=== PATIENT | female | born 2000 | race Caucasian/White ===

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

== ENCOUNTER 2020-05-18 00:06 | Outpatient (CLI) | payer MEDICAID ==
[~2020-05-18] VITALS: Ht 160 cm; Wt 68.2 kg
--- NOTE | 2020-05-18 00:05 | NUR ---
0005- PT PRESENTS TO LDR COMPLAINING OF ABDOMINAL PAIN AFTER FALLING ON HER BELLY IN THE SHOWER, TO LR3 PER WHEELCHAIR, CHANGED INTO GOWN. 0015- EFM X2 APPLIED. PT DENIES LEAKING FLUID OR VAGINAL BLEEDING. STATES SHE IS HAVING A SHARP PAIN IN HER LOWER BELLY THAT LASTS A FEW SECONDS AND COMES AND GOES. STATES SHE SLIPPED ON SOME CLOTHES WHILE GETTING OUT OF TUB AND FELL ON HER BELLY. DENIES GETTING LIGHT HEADED BEFORE OR AFTER FALL. STATES SHE HAS NOT FELT BABY MOVE SINCE THE FALL, BUT MOVEMENT HEARD ON MONITOR. PT IS RELIEVED WHEN HEART TONES FOUND EASILY. 0020- NURSING ADMISSION HISTORY AND ASSESSMENT COMPLETE. VSS. PLAN OF CARE DISCUSSED AND QUESTIONS ANSWERED. 0045- DR HECK CALLED AND UPDATED CHARTED. ORDERS FOR DISMISSAL WHEN PT IS MORE COMFORTABLE AND REASSURED. PLAN OF CARE DISCUSSED WITH PT. 0115- PT FEELS REASSURED THAT BABY IS DOING OK. STATE SHE IS FEELING MOVEMENT AND KNOWS SHE CAN RETURN TO LDR IF NEEDED. PT OFF MONITOR FOR DISMISSAL. 0130- DISMISSAL INSTRUCTIONS GIVEN AND PT VERBALIZES UNDERSTANDING OF WHEN TO FOLLOW UP AND WHEN TO RETURN TO LDR. PT DISMISSED TO HOME AMBULATORY.
[~2020-05-18 00:06] MED LIST: BACTRIM DS 8001 TAB PO; CEPHALEXIN500 M1 PO
[2020-05-18] MEDS ORDERED: PRENATAL VITAMI1 TA3 PO (00:33)
[2020-05-18 00:45] VITALS: BP 126/70; PULSE 79; TEMP 97.7
== END 2020-05-18 01:30 | disposition home or self-care (01) ==
LOC: LDRO 00:06 → LDR 00:24 → LDRO 01:30
DX: O26.893 Other specified pregnancy related conditions, third trimester (principal); R10.9 Unspecified abdominal pain; Z3A.30 30 weeks gestation of pregnancy
CPT/HCPCS: OP

== ENCOUNTER 2020-07-23 22:56 | Outpatient (CLI) | payer MEDICAID ==
[~2020-07-23] VITALS: Ht 162.6 cm; Wt 75.9 kg
[~2020-07-23 22:56] MED LIST changes: +PRENATAL VITAMI1 TA3 PO
--- NOTE | 2020-07-23 23:00 | NUR ---
PT ARRIVED TO THE UNIT VIA WHEELCHAIR WITH FOB WITH COMPLAINTS OF CONTRACTIONS THAT BEGAN APPROXIMATELY 30 MINUTES AGO. PT ORIENTED TO ROOM, CHANGED INTO GOWN, EFMX2 APPLIED, VS OBTAINED, SVE PERFORMED.
[2020-07-23 23:30] VITALS: BP 131/69; PULSE 78; TEMP 98.1
[2020-07-24] VITALS: BP 118/59; PULSE 62
[2020-07-24 00:32] VITALS: BP 118/67; PULSE 68
--- NOTE | 2020-07-24 00:32 | NUR ---
MONTIORING DC'D AT THIS TIME. PT MAY DC HOME PER DR. AVILEZ.
--- NOTE | 2020-07-24 00:50 | NUR ---
DISCHARGE INSTRUCTIONS REVIEWED WITH PT AND FOB, QUESTIONS ENCOURAGED AND ANSWERED. UNDERSTANDING VERBALIZED. PT OFF UNIT VIA WHEELCHAIR PER HER REQUEST WITH FOB FOR HOME.
[2020-07-25] MEDS ORDERED: IBU800 M1 PO (08:41)
[2020-07-25] MEDS ORDERED: PERCOCET 325 MG1 TA2 PO (08:42)
== END 2020-07-24 00:50 | disposition home or self-care (01) ==
LOC: LDRO 22:56
DX: O62.9 Abnormality of forces of labor, unspecified (principal); Z3A.39 39 weeks gestation of pregnancy

== ENCOUNTER 2020-07-24 02:58 | Inpatient (IN) | payer MEDICAID ==
[~2020-07-24] VITALS: Ht 162.6 cm; Wt 75.9 kg
[2020-07-24] VITALS (44 sets, daily range): BP systolic 106–138; BP diastolic 54–93; PULSE 56–111; TEMP 97.3–98.6
--- NOTE | 2020-07-24 03:00 | NUR ---
PT ARRIVED TO UNIT VIA WHEELCHAIR WITH FOB WITH COMPLAINTS OF MORE INTENSE CONTRACTIONS SINCE PREVIOUS VISIT. ORIENTED TO ROOM, CHANGED INTO GOWN, EFMX2 APPLIED, VS OBTAINED, SVE PERFORMED.
[2020-07-24 03:54] LABS: BASO # 0.1 (0.0-0.2); BASO % 0.3 % (0.0-2.0); EOS % 0.3 % (0-4.0); GRAN # 12.8 (1.4-6.5); GRAN % 81.8 % (42.2-75.2); HEMOGLOBIN 10.4 g/dl (12.0-15.0); LYMPH # 1.8 (1.2-3.4); LYMPH % 11.4 % (20.0-51.0); MEAN CELL VOLUME 85 fl (80.0-95.0); MEAN CORPUSCULAR HEMOGLOBIN 27 pg (26.0-32.0); MEAN CORPUSCULAR HGB CONC 32 g/dl (33.0-37.0); MEAN PLATELET VOLUME 11.2 fl (7.4-10.4); MONO # 0.9 (0.1-0.6); MONO % 5.8 % (1.7-9.3); PLATELET COUNT 367 K/mm3 (130-400); REDCELL DISTRIBUTION WIDTH-CV 13.1 % (11.5-14.5)
[2020-07-24 04:00] LABS: HEMATOCRIT 32.3 % (35.0-45.0)
--- NOTE | 2020-07-24 06:05 | NUR ---
FOB OUT TO NURSES DESK, STATES THAT PT IS REQUESTING EPIDURAL AT THIS TIME.
--- NOTE | 2020-07-24 06:20 | NUR ---
0620-SVE by previous nurse, unchanged from admission check. Up to bathroom. Returns to bed SF. Patient requests epidural, TRISTAN Mujica notified. 0720-Patient sitting upright on bedside for epidural. Difficulty tracing FHR due to positioning for epidural. 0737-Blood return per TRISTAN Mujica in epidural catheter, New placement by MARYBETH Mujica 0740-Test dose By TRISTAN Mujica. Patient tolerated procedure well. VSS
[2020-07-24 07:03] LABS: TRICYCLIC ANTIDEPRESS URINE NEGATIVE
--- NOTE | 2020-07-24 13:10 | NUR ---
1310-Patient naueseated, PRN zofran given, see EMAR Dr. Diaz on unit. reviews chart and FHR monitor. 1320-Dr. Diaz to room. Reviews plan of care with patient.
--- NOTE | 2020-07-24 14:02 | NUR ---
1402-Patient complete and +2 station. Green discontinued. Updated MD who remains on unit. 1410-Patient begins pushing with contractions moves vertex well. 1416-Requested MD to room. 1419-Spontaneous delivery of head attended by Dr. Diaz. Patient continues to push and immediately body follows. Viable female infant to mothers abdomen. Cord clamped x2 and cut by father of baby. Care of assumed by PETRONA Bobby. Apgars 8/9/9. 1422-Spontaneous delivery of intact palcenta by MD. Fundal massge firm. Lochia WNL. EBL 200ml. Right periurethral laceration repaired by MD. Kira care provided. Updated on plan of care and safety.
--- NOTE | 2020-07-24 17:00 | NUR ---
1700-Patient ambulates with standby to bathroom. Unable to void at this time.Kira care assisted and gown changed. Easily ambulates down the rodrigues to 214. Oriented to room and updated on plan of care. 1750-Patient voids 900ml clear yellow urine.
[2020-07-25 00:50] VITALS: BP 120/59; PULSE 60; TEMP 97.4
[2020-07-25] MEDS ORDERED: IBU800 M1 PO (08:41)
[2020-07-25] MEDS ORDERED: PERCOCET 325 MG1 TA2 PO (08:42)
[2020-07-25 09:00] VITALS: BP 113/75; PULSE 71; TEMP 97.3
--- NOTE | 2020-07-25 12:42 | NUR ---
Initial visit; Parents thanked Air Pollution Control Engineer for offering congratulations and God's blessings for the of their daugter. Air Pollution Control Engineer thanked family for choosing our hospital.
--- NOTE | 2020-07-25 14:41 | NUR ---
YESI responded to consult. The patient had a history of marijuana use before and for teen . YESI met with the patient and her boyfriend (father of baby), Melissa. The patient lives in [place] in an apartment with Melissa. She states that this is her first child. She reports that Melissa is working and that they have a crib, carseat, all supplies for baby and have applied for WIC. She reports that Melissa's family lives around here and is also support. YESI addressed the patient's past history of marijuana use. The patient admits to marijuana use before she was , but did not use during and does not plan to use when she brings baby home. The patient and Melissa had no other questions for concerns for YESI. YESI did leave them [facility]'s Resouce Guide. YESI updated the patient's RN on the above. No additional needs at this time.
[2020-07-25 17:25] VITALS: BP 131/76; PULSE 78; TEMP 97.9
--- NOTE | 2020-07-25 18:30 | NUR ---
Report recieved. Sitting up in bed at this time. Updated whiteboard and reviewed POC.
[2020-07-25 19:30] VITALS: BP 120/65; PULSE 66; TEMP 98.2
[2020-07-26 07:50] VITALS: BP 121/75; PULSE 66; TEMP 97.9
--- NOTE | 2020-07-28 15:25 | NUR ---
Patient's infant's cord blood was negative for illegal drugs in system.
== END 2020-07-26 14:50 | disposition home or self-care (01) | DRG 807 ==
LOC: LDRO 02:58 → LDR 03:16 → OB 03:16
PROVIDERS: Obstetrics & Gynecology; ADMIT Obstetrics & Gynecology
PROC: 10E0XZZ Delivery of Products of Conception, External Approach (ICD-10-PCS; principal; 2020-07-24)
PROC: 0UQMXZZ Repair Vulva, External Approach (ICD-10-PCS; 2020-07-24)
DX: O71.82 Other specified trauma to perineum and vulva (principal); Z37.0 Single live birth; Z3A.39 39 weeks gestation of pregnancy
CPT/HCPCS: J2405; J2590; J7120

== ENCOUNTER 2021-02-25 18:28 | Emergency (ER) | payer MEDICAID ==
[~2021-02-25] VITALS: Ht 160 cm; Wt 59.1 kg
[~2021-02-25 18:28] MED LIST changes: +IBU800 M1 PO; +PERCOCET 325 MG1 TA2 PO
[2021-02-25 18:39] VITALS: TEMP 98.5
[2021-02-25 21:38] LABS: COLLECTION METHOD CLEAN CATCH
[2021-02-25 21:50] LABS: MUCOUS Present (NOT PRESENT); PH 5 (5-8); URINE APPEARANCE Hazy (CLEAR/HAZY); URINE BACTERIA Rare (NONE SEEN); URINE BILIRUBIN Negative (NEGATIVE); URINE BLOOD 1+ (NEGATIVE); URINE COLOR Amber (YELLOW); URINE GLUCOSE Negative (NEGATIVE); URINE KETONE Trace (NEGATIVE); URINE LEUKOCYTE ESTERASE Negative (NEGATIVE); URINE NITRATE Negative (NEGATIVE); URINE PROTEIN(semi-quant) 1+ (NEGATIVE)
[2021-02-25 22:31] LABS: BASO % 0.3 % (0.0-2.0); EOS % 0.3 % (0-4.0); GRAN # 2.2 K/mm3 (1.4-6.5); GRAN % 60.7 % (42.2-75.2); HEMOGLOBIN 11.8 g/dl (12.0-15.0); LYMPH # 0.9 K/mm3 (1.2-3.4); LYMPH % 24.5 % (20.0-51.0); MEAN CELL VOLUME 79 fl (80.0-95.0); MEAN CORPUSCULAR HEMOGLOBIN 28 pg (26.0-32.0); MEAN CORPUSCULAR HGB CONC 36 g/dl (33.0-37.0); MEAN PLATELET VOLUME 10.1 fl (7.4-10.4); MONO # 0.5 K/mm3 (0.1-0.6); MONO % 13.9 % (1.7-9.3); PLATELET COUNT 290 K/mm3 (130-400); RED BLOOD COUNT 4.17 M/mm3 (4.10-5.30); REDCELL DISTRIBUTION WIDTH-CV 12.8 % (11.5-14.5)
[2021-02-25 22:33] LABS: HEMATOCRIT 33.1 % (35.0-45.0)
[2021-02-25] MEDS ORDERED: CEPHALEXIN500 M1 PO (22:49)
[2021-02-25 22:51] LABS: BILIRUBIN,TOTAL 0.3 mg/dL (0.2-1.2); CALCIUM 9.1 mg/dL (8.4-10.2); CREATININE, serum 0.67 mg/dL (0.57-1.11); TOTAL PROTEIN 7.1 gm/dL (6.2-8.1)
[2021-02-25 22:52] LABS: POTASSIUM 2.9 mmol/L (3.5-4.5)
[2021-02-25 23:32] VITALS: PULSE 65
[2021-02-25 23:34] VITALS: BP 95/59
== END 2021-02-25 23:36 | disposition home or self-care (01) ==
LOC: COL.ER 18:28
PROVIDERS: Student in an Organized Health Care Education/Training Program
DX: O23.90 Unspecified genitourinary tract infection in pregnancy, unspecified trimester (principal); R82.71 Bacteriuria; O99.891 Other specified diseases and conditions complicating pregnancy; M54.9 Dorsalgia, unspecified; Z3A.00 Weeks of gestation of pregnancy not specified

== ENCOUNTER 2021-04-13 20:27 | Emergency (ER) | payer MEDICAID ==
[~2021-04-13] VITALS: Ht 160 cm; Wt 59.1 kg
[2021-04-13 23:01] LABS: HEMOGLOBIN 10.7 g/dl (12.0-15.0); MEAN CELL VOLUME 82 fl (80.0-95.0); MEAN CORPUSCULAR HEMOGLOBIN 29 pg (26-32); MEAN CORPUSCULAR HGB CONC 35 g/dl (33.0-37.0); MEAN PLATELET VOLUME 10.2 fl (7.4-10.4); PLATELET COUNT 305 K/mm3 (130-400); RED BLOOD COUNT 3.68 M/mm3 (4.10-5.30); REDCELL DISTRIBUTION WIDTH-CV 13.2 % (11.5-14.5)
[2021-04-13 23:21] LABS: HEMATOCRIT 30.3 % (35.0-45.0)
[2021-04-13 23:26] LABS: BILIRUBIN,TOTAL 0.5 mg/dL (0.2-1.2); CALCIUM 9.2 mg/dL (8.4-10.2); CREATININE, serum 0.6 mg/dL (0.57-1.11); POTASSIUM 3.5 mmol/L (3.5-4.5); TOTAL PROTEIN 7.3 gm/dL (6.2-8.1)
[2021-04-13 23:53] LABS: LYMPHOCYTE 4 % (20.0-51.0); NEUTROPHILS 90 % (42.0-75.2); PLATELET ESTIMATE NORMAL (NORMAL)
[2021-04-14] MEDS ORDERED: ZOFRAN ODT4 MG PO (00:19)
[2021-04-14 00:38] VITALS: BP 110/60; PULSE 85; TEMP 98.5
== END 2021-04-14 00:43 | disposition home or self-care (01) ==
LOC: COL.ER 20:27
PROVIDERS: Personal Emergency Response Attendant
DX: O21.9 Vomiting of pregnancy, unspecified (principal); Z3A.16 16 weeks gestation of pregnancy
CPT/HCPCS: J2270; J2405; J7030

== ENCOUNTER 2021-05-31 10:34 | Emergency (ER) | payer MEDICAID ==
[~2021-05-31] VITALS: Ht 162.6 cm; Wt 61.4 kg
[~2021-05-31 10:34] MED LIST changes: +ZOFRAN ODT4 MG PO
[2021-05-31 11:04] VITALS: TEMP 98.2
[2021-05-31 11:20] LABS: COLLECTION METHOD CLEAN CATCH
[2021-05-31 11:30] LABS: MUCOUS Present (NOT PRESENT); PH 6 (5-8); URINE APPEARANCE Cloudy (CLEAR/HAZY); URINE BACTERIA Rare /hpf (NONE SEEN); URINE BILIRUBIN Negative (NEGATIVE); URINE BLOOD Negative (NEGATIVE); URINE COLOR Amber (YELLOW); URINE GLUCOSE Negative (NEGATIVE); URINE KETONE Trace (NEGATIVE); URINE LEUKOCYTE ESTERASE 1+ (NEGATIVE); URINE NITRATE Negative (NEGATIVE); URINE PROTEIN(semi-quant) 2+ (NEGATIVE); URINE UROBILINOGEN Negative (NEGATIVE)
[2021-05-31 11:46] LABS: BASO % 0.3 % (0.0-2.0); EOS # 0.1 K/mm3 (0.0-0.7); EOS % 0.5 % (0.0-4.0); GRAN # 9.8 K/mm3 (1.4-6.5); HEMATOCRIT 31.5 % (35.0-45.0); HEMOGLOBIN 10.7 g/dl (12.0-15.0); LYMPH # 1.2 K/mm3 (1.2-3.4); LYMPH % 9.8 % (20.0-51.0); MEAN CELL VOLUME 89 fl (80.0-95.0); MEAN CORPUSCULAR HEMOGLOBIN 30 pg (26-32); MEAN CORPUSCULAR HGB CONC 34 g/dl (33.0-37.0); MONO # 0.6 K/mm3 (0.1-0.6); MONO % 5.1 % (1.7-9.3); PLATELET COUNT 351 K/mm3 (130-400); RED BLOOD COUNT 3.56 M/mm3 (4.10-5.30); REDCELL DISTRIBUTION WIDTH-CV 13.9 % (11.5-14.5)
[2021-05-31 12:11] LABS: ALANINE AMINOTRANSFERASE 7 U/L (0-55); ALBUMIN 3.5 gm/dL (3.5-5.0); ALKALINE PHOSPHATASE 68 U/L (40-150); ANION GAP 7 mmol/L (7-16); AST,SGOT 11 U/L (5-34); BILIRUBIN,TOTAL 0.6 mg/dL (0.2-1.2); BLOOD UREA NITROGEN 8 mg/dL (7-19); CARBON DIOXIDE 24 mmol/L (22-29); CHLORIDE 108 mmol/L (98-107); CREATININE, serum 0.64 mg/dL (0.57-1.11); GLUCOSE 84 mg/dL (70-99); POTASSIUM 3.5 mmol/L (3.5-4.5); SODIUM 139 mmol/L (136-145); TOTAL PROTEIN 6.8 gm/dL (6.2-8.1)
[2021-05-31 12:13] LABS: ACETAMINOPHEN < 1.0 ug/mL (10-30); ALCOHOL(ethanol),MEDICAL < 10 mg/dL (0-10); SALICYLATE < 5.0 mg/dL (15.0-30.0)
[2021-05-31 12:29] LABS: TRICYCLIC ANTIDEPRESS URINE NEGATIVE
[2021-05-31 16:30] VITALS: BP 111/64; PULSE 74
== END 2021-05-31 16:30 | disposition home or self-care (01) ==
LOC: COL.ER 10:34
PROVIDERS: Emergency Medicine
DX: O99.342 Other mental disorders complicating pregnancy, second trimester (principal); R45.851 Suicidal ideations; Z3A.20 20 weeks gestation of pregnancy; Z20.822 Contact with and (suspected) exposure to COVID-19

== ENCOUNTER 2021-10-05 04:34 | Inpatient (IN) | payer MEDICAID ==
[~2021-10-05] VITALS: Ht 160 cm; Wt 68.6 kg
[2021-10-05] VITALS (21 sets, daily range): BP systolic 11–1060; BP diastolic 51–90; PULSE 51–122; TEMP 97.6–98.2
--- NOTE | 2021-10-05 04:35 | NUR ---
PT TO UNIT VIA WHEELCHAIR WITH COMPLAINTS OF CONTRACTIONS. PT ORIENTED TO ROOM, EFM X2 APPLIED, VS OBTAINED, SVE PERFORMED.
[2021-10-05 05:22] LABS: BASO % 0.4 % (0.0-2.0); EOS # 0.1 K/mm3 (0.0-0.7); EOS % 0.9 % (0.0-4.0); GRAN # 6.6 K/mm3 (1.4-6.5); GRAN % 67.2 % (42.2-75.2); HEMOGLOBIN 10.4 g/dl (12.0-15.0); LYMPH # 2.4 K/mm3 (1.2-3.4); LYMPH % 24.4 % (20.0-51.0); MEAN CELL VOLUME 82 fl (80.0-95.0); MEAN CORPUSCULAR HEMOGLOBIN 28 pg (26-32); MEAN CORPUSCULAR HGB CONC 34 g/dl (33.0-37.0); MEAN PLATELET VOLUME 10.7 fl (7.4-10.4); MONO # 0.7 K/mm3 (0.1-0.6); MONO % 6.7 % (1.7-9.3); PLATELET COUNT 376 K/mm3 (130-400); RED BLOOD COUNT 3.78 M/mm3 (4.10-5.30); REDCELL DISTRIBUTION WIDTH-CV 13.1 % (11.5-14.5)
[2021-10-05 05:26] LABS: HEMATOCRIT 30.8 % (35.0-45.0)
--- NOTE | 2021-10-05 05:26 | NUR ---
0516- Luca VILLAFUERTE CRNA IN ROOM FOR EPIDURAL PLACEMENT. 0517- PT SITTING UP AT BEDSIDE. 0520- SINGLE SHOT PLACED BY Luca VILLAFUERTE CRNA. PT TOLERATED WELL. 0526- PT REPOSITIONED INTO HIGH FOWLERS. FOLLOWING EPIDURAL PLACEMENT.
[2021-10-05 06:51] LABS: TRICYCLIC ANTIDEPRESS URINE NEGATIVE
--- NOTE | 2021-10-05 07:38 | NUR ---
0650 - DR ISIS SAGASTUME RN FOR UPDATE, PROGRESS REPORT GIVEN, SHE WILL REPORT OFF TO DR BURCH
--- NOTE | 2021-10-05 09:34 | NUR ---
0750 - DR BURCH NOTIFIED PT COMPLETE AND FEELING SOME PRESSURE, [facility]ES STILL INTACT, WILL START PUSHING 0755 - WONG CATHETER DC'D WITH 150CC URINE OUT
--- NOTE | 2021-10-05 09:42 | NUR ---
0803 INSTRUCTED PT ON PUSHING TECHNIQUES, STARTS PUSHING WITH CTXS
--- NOTE | 2021-10-05 09:48 | NUR ---
0820 DR BURCH HERE 0821 AROM MODERATE AMOUNT OF CLEAR FLUID, LABOR ROOM CONVERTED TO DELIVERY ROOM 0830 DELIVERY OF VIABLE FEMALE , SPONTANEOUS CRY PRESENT, TO MOTHERS ABD, DRIED AND STIMULATED WITH GOOD RESPONSE, NO LACERATIONS NO REPAIR
[2021-10-05 11:47] LABS: MEAN CELL VOLUME 85 fl (80.0-95.0); MEAN CORPUSCULAR HGB CONC 32 g/dl (33.0-37.0); MEAN PLATELET VOLUME 10.6 fl (7.4-10.4); PLATELET COUNT 353 K/mm3 (130-400); RED BLOOD COUNT 3.48 M/mm3 (4.10-5.30); REDCELL DISTRIBUTION WIDTH-CV 13.2 % (11.5-14.5)
[2021-10-05 11:48] LABS: HEMATOCRIT 29.4 % (35.0-45.0); HEMOGLOBIN 9.5 g/dl (12.0-15.0); MEAN CORPUSCULAR HEMOGLOBIN 27 pg (26-32)
[2021-10-05 12:18] LABS: BAND 8 % (0-10); LYMPHOCYTE 12 % (20.0-51.0); NEUTROPHILS 79 % (42.0-75.2); PLATELET ESTIMATE NORMAL (NORMAL)
[2021-10-06 00:15] VITALS: BP 117/54; PULSE 52; TEMP 97.9
[2021-10-06 04:15] VITALS: BP 107/66; PULSE 56; TEMP 97.9
[2021-10-06 08:10] VITALS: BP 120/75; PULSE 61; TEMP 98.5
[2021-10-06] MEDS ORDERED: IBU600 MG PO (09:44)
--- NOTE | 2021-10-06 13:21 | NUR ---
Initial visit attempt; Patient Indisposed, Dairy Farm Operator left card of congratulations and God's blessings for the of their daughter along with information regarding the availability of Spiritual Care at our hospital.
[2021-10-06 16:30] VITALS: BP 127/85; PULSE 90; TEMP 98.8
[2021-10-06 19:00] VITALS: BP 115/69; PULSE 57; TEMP 97.8
[2021-10-07 08:19] VITALS: BP 106/69; PULSE 61; TEMP 97.7
--- NOTE | 2021-10-07 12:10 | NUR ---
DISCHARGE EDUCATION AND FOLLOW UP APPOINTMENTS COMPLETED WITH PATIENT. QUESTIONS INVITED AND ANSWERED.
--- NOTE | 2021-10-07 12:50 | NUR ---
PATIENT WALKED OUT TO CAR WITH STAFF.
--- NOTE | 2021-10-09 16:06 | NUR ---
YESI received cord blood results on patient's baby. The cord blood results were negative.
== END 2021-10-07 12:50 | disposition home or self-care (01) | DRG 807 ==
LOC: LDRO 04:34 → LDR 04:40 → OB 04:40
PROVIDERS: Student in an Organized Health Care Education/Training Program; ADMIT Obstetrics & Gynecology
PROC: 10E0XZZ Delivery of Products of Conception, External Approach (ICD-10-PCS; principal; 2021-10-05)
PROC: 10907ZC Drainage of Amniotic Fluid, Therapeutic from Products of Conception, Via Natural or Artificial Opening (ICD-10-PCS; 2021-10-05)
DX: O43.123 Velamentous insertion of umbilical cord, third trimester (principal); Z37.0 Single live birth; Z3A.38 38 weeks gestation of pregnancy; O90.81 Anemia of the puerperium; D64.9 Anemia, unspecified; O41.8X30 Other specified disorders of amniotic fluid and membranes, third trimester, not applicable or unspecified
CPT/HCPCS: J2590; J7120